=== PATIENT | female | born 1985 | race Caucasian/White ===

== ENCOUNTER 2016-05-19 20:54 | Emergency (ER) | payer BC ==
[~2016-05-19] VITALS: Ht 162.6 cm; Wt 56.7 kg
[2016-05-19 21:00] VITALS: BP 123/60
== END 2016-05-19 21:44 | disposition home or self-care (01) ==
LOC: ER 20:54
DX: J02.0 Streptococcal pharyngitis (principal); H66.91 Otitis media, unspecified, right ear; H10.9 Unspecified conjunctivitis
CPT/HCPCS: 99283; A4606; Z7610